=== PATIENT | female | born 1950 | race Two or more races ===

== ENCOUNTER 2018-01-30 06:56 | Inpatient (IN) | payer MEDICAID, MEDICARE, OTHER ==
[~2018-01-30] VITALS: Ht 152.4 cm; Wt 73.5 kg
[2018-01-30] MEDS ORDERED: SODIUM CHLORIDE 0.9% 1,000 ML IV ONE (07:51)
[2018-01-30 07:57] LABS: Hematocrit 44.2 % (36.0-46.0); Hemoglobin 14.6 g/dL (12.2-16.2); INR 0.93 (0.9-1.15); Mean Corpuscular Hemoglobin 29.3 pg (28.0-32.0); Mean Corpuscular Volume 88.7 fL (80.0-100.0); Partial Thromboplastin Time 23.9 sec (23.78-33.04); Platelet Count (auto) 321 10^3/uL (140-450); Red Blood Cells 4.98 10^6/uL (4.0-5.20)
[2018-01-30 08:00] LABS: Albumin 3.4 g/dL (3.4-5.0); BUN/Creatinine Ratio 14.7; Calcium 8.1 mg/dL (8.5-10.1); Magnesium 1.9 mg/dL (1.6-2.6); Potassium 3.9 mmol/L (3.5-5.1)
[2018-01-30] MEDS ORDERED: ONDANSETRON HCL 4 MG/2 ML VIAL IV ONE (08:00)
[2018-01-30 08:04] LABS: Bilirubin, Total 0.5 mg/dL (0.2-1.0); Total Protein 7.3 g/dL (6.4-8.2)
[2018-01-30 08:05] LABS: Basophils % (manual) 0 (0.0-2.0); Blast Cells 0; Eosinophils % (manual) 0 (0-7); Metamyelocytes % 0; Myelocytes % 0; Promyelocytes % 0; Reactive Lymphocytes 0
[2018-01-30] MEDS ORDERED: cefTRIAXone 1GM/10ml IVPUSH 10 ML IV ONE (08:30)
[2018-01-30] MEDS ORDERED: AZITHROMYCIN 500MG/ 250ML 250 ML IV ONE (08:30)
[2018-01-30 08:43] LABS: Band Neutrophils % (manual) 5; Lymphocytes % (manual) 18 (10.0-50.0); Monocytes % (manual) 1 (0-12)
[2018-01-30] MEDS ORDERED: KETOROLAC TROMETH 30 MG/ML 1ML VIAL IV ONE (08:45)
[2018-01-30] MEDS ORDERED: DEXTROSE (50%) 50ML SYRG IV PRN (11:00)
[2018-01-30] MEDS ORDERED: MORPHINE SULFATE 4 MG/ML SYR/VIAL IV PRN ×2 (11:00)
[2018-01-30] MEDS ORDERED: HYDROcodone-ACET 5/325MG TAB PO PRN (11:00)
[2018-01-30] MEDS ORDERED: ALBUTEROL SULF 2.5 MG/0.5ML(0.5%) NEB SOLN NEB PRN (11:00)
[2018-01-30] MEDS ORDERED: LORazepam 0.5 MG TAB PO PRN (11:00)
[2018-01-30] MEDS ORDERED: NITROGLYCERIN 0.4 MG SL TAB SL PRN (11:00)
[2018-01-30] MEDS ORDERED: LACTULOSE 20Gm/30ML SOLN PO PRN (11:00)
[2018-01-30] MEDS ORDERED: ONDANSETRON HCL 4 MG/2 ML VIAL IV PRN (11:00)
[2018-01-30] MEDS: SODIUM CHLORIDE 0.9% 1,000 ML IV SCH (11:13)
[2018-01-30] MEDS: ACCU-CHEK COMFORT CURVE STRIP VI SCH ×3 (11:17→22:11)
[2018-01-30] MEDS: ASPirin 81 mg TAB PO SCH (11:25)
[2018-01-30] MEDS: InsuLIN REG 1unit/0.01ml Soln (100units/ml) SC SCH ×3 (11:26→22:00)
[2018-01-30] MEDS: ENOXAPARIN SOD 60 MG/0.6 ML SYRINGE SC SCH ×2 (11:27→22:00)
[2018-01-30] MEDS ORDERED: ALBUTEROL SULF 2.5 MG/0.5ML(0.5%) NEB SOLN NEB SCH (12:00)
[2018-01-30 15:37] VITALS: BP 98/60
[2018-01-30 16:09] LABS: Amylase 34 U/L (25-115); Lipase 136 U/L (73-393)
[2018-01-30] MEDS ORDERED: TERBUTALINE SULFATE 5 MG TAB PO ONE (19:00)
[2018-01-30 21:13] VITALS: BP 111/59
[2018-01-30 22:00] VITALS: BP 111/59
[2018-01-30] MEDS: TERBUTALINE SULFATE 5 MG TAB PO SCH (22:09)
[2018-01-30] MEDS: METOPROLOL TARTRATE 25 MG TAB PO SCH (22:10)
[2018-01-30] MEDS: ATORVASTATIN 20 MG TAB PO SCH (22:19)
[2018-01-31] MEDS: SODIUM CHLORIDE 0.9% 1,000 ML IV SCH ×2 (01:00→16:52)
[2018-01-31 05:00] VITALS: BP 118/66
[2018-01-31] MEDS: InsuLIN REG 1unit/0.01ml Soln (100units/ml) SC SCH ×4 (06:55→22:00)
[2018-01-31] MEDS: ACCU-CHEK COMFORT CURVE STRIP VI SCH ×4 (06:55→22:00)
[2018-01-31 06:57] LABS: Cholesterol 192 mg/dL (< 200); HDL Cholesterol 46 mg/dL (40-59); LDL Cholesterol 130 mg/dL (< 100); Triglycerides 185 mg/dL (< 150)
[2018-01-31 08:16] VITALS: BP 115/67
[2018-01-31] MEDS: ACETAMINOPHEN 500 MG TAB PO PRN ×2 (09:05→21:39)
[2018-01-31] MEDS: cefTRIAXone 1GM/10ml IVPUSH 10 ML IV SCH (09:05)
[2018-01-31] MEDS: AZITHROMYCIN 500MG/ 250ML 250 ML IV SCH (10:43)
[2018-01-31] MEDS: PANTOPRAZOLE 40 MG TAB PO SCH (10:43)
[2018-01-31] MEDS: ASPirin 81 mg TAB PO SCH (10:43)
[2018-01-31] MEDS: METOPROLOL TARTRATE 25 MG TAB PO SCH ×2 (10:44→21:32)
[2018-01-31] MEDS: NITROGLYCERIN 0.2MG/HR TOPICAL PATCH TD SCH (11:13)
[2018-01-31] MEDS: TERBUTALINE SULFATE 5 MG TAB PO SCH ×2 (11:14→22:00)
[2018-01-31 12:21] VITALS: BP 118/56
[2018-01-31] MEDS ORDERED: LIDOCAINE 2%HCL (LOCAL ANESTH.) INJ 20ML MDV ONE (13:01)
[2018-01-31] MEDS ORDERED: IODIXANOL 320MG/ML 100ML BTL IV ONE ×2 (13:01→13:44)
[2018-01-31] MEDS ORDERED: SODIUM CHL 0.9% 0 ML ONE (13:43)
[2018-01-31] MEDS ORDERED: fentaNYL CITRATE 100 MCG/2 ML VL ONE (13:43)
[2018-01-31] MEDS ORDERED: ANGIOMAX 250 MG VIAL IV ONE (13:43)
[2018-01-31] MEDS ORDERED: MIDAZOLAM HCL 1MG/1ML-2 ML VIAL ONE (13:43)
[2018-01-31 16:47] VITALS: BP 121/74
[2018-01-31] MEDS: ATORVASTATIN 20 MG TAB PO SCH (21:30)
[2018-01-31 22:00] VITALS: BP 123/66
[2018-02-01] MEDS: SODIUM CHLORIDE 0.9% 1,000 ML IV SCH ×2 (02:13→16:09)
[2018-02-01 05:00] VITALS: BP 102/60
[2018-02-01] MEDS: ACCU-CHEK COMFORT CURVE STRIP VI SCH ×4 (05:37→22:00)
[2018-02-01] MEDS: InsuLIN REG 1unit/0.01ml Soln (100units/ml) SC SCH ×4 (05:38→22:00)
[2018-02-01 08:30] VITALS: BP 115/50
[2018-02-01] MEDS: METOPROLOL TARTRATE 25 MG TAB PO SCH ×2 (10:00→22:52)
[2018-02-01] MEDS: NITROGLYCERIN 0.2MG/HR TOPICAL PATCH TD SCH (10:00)
[2018-02-01] MEDS: cefTRIAXone 1GM/10ml IVPUSH 10 ML IV SCH (10:27)
[2018-02-01] MEDS: ASPirin 81 mg TAB PO SCH (10:28)
[2018-02-01] MEDS: PANTOPRAZOLE 40 MG TAB PO SCH (10:28)
[2018-02-01] MEDS: AZITHROMYCIN 500MG/ 250ML 250 ML IV SCH (10:28)
[2018-02-01] MEDS: TERBUTALINE SULFATE 5 MG TAB PO SCH ×2 (10:43→22:00)
[2018-02-01 12:30] VITALS: BP 131/66
[2018-02-01] MEDS: ACETAMINOPHEN 500 MG TAB PO PRN (13:51)
[2018-02-01 16:53] VITALS: BP 118/60
[2018-02-01 21:41] VITALS: BP 145/70
[2018-02-01] MEDS: ATORVASTATIN 20 MG TAB PO SCH (22:53)
[2018-02-02 04:38] VITALS: BP 142/56
[2018-02-02] MEDS: SODIUM CHLORIDE 0.9% 1,000 ML IV SCH ×2 (05:29→18:49)
[2018-02-02] MEDS: ACETAMINOPHEN 500 MG TAB PO PRN (06:06)
[2018-02-02] MEDS: InsuLIN REG 1unit/0.01ml Soln (100units/ml) SC SCH (06:07)
[2018-02-02] MEDS: ACCU-CHEK COMFORT CURVE STRIP VI SCH (06:07)
[2018-02-02 09:00] VITALS: BP 142/76
[2018-02-02] MEDS: cefTRIAXone 1GM/10ml IVPUSH 10 ML IV SCH (09:36)
[2018-02-02] MEDS: ASPirin 81 mg TAB PO SCH (09:36)
[2018-02-02] MEDS: METOPROLOL TARTRATE 25 MG TAB PO SCH ×2 (09:37→21:39)
[2018-02-02] MEDS: PANTOPRAZOLE 40 MG TAB PO SCH (09:52)
[2018-02-02] MEDS: TERBUTALINE SULFATE 5 MG TAB PO SCH ×2 (09:52→21:38)
[2018-02-02] MEDS: AZITHROMYCIN 500MG/ 250ML 250 ML IV SCH (09:52)
[2018-02-02] MEDS: NITROGLYCERIN 0.2MG/HR TOPICAL PATCH TD SCH (09:53)
[2018-02-02] MEDS ORDERED: LOPERAMIDE HCL 2 MG CAP PO PRN (10:30)
[2018-02-02 13:00] VITALS: BP_SYST 135; BP_SYST 154; BP_DIAS 75; BP_DIAS 80
[2018-02-02 17:00] VITALS: BP 140/72
[2018-02-02 21:30] VITALS: BP 151/77
[2018-02-02] MEDS: TEMAZEPAM 15 MG CAP PO PRN (21:39)
[2018-02-02] MEDS: ATORVASTATIN 20 MG TAB PO SCH (21:39)
[2018-02-03 04:44] VITALS: BP 137/69
[2018-02-03] MEDS: SODIUM CHLORIDE 0.9% 1,000 ML IV SCH ×2 (08:09→22:34)
[2018-02-03 09:00] VITALS: BP 156/73
[2018-02-03] MEDS: cefTRIAXone 1GM/10ml IVPUSH 10 ML IV SCH (11:17)
[2018-02-03] MEDS: AZITHROMYCIN 500MG/ 250ML 250 ML IV SCH (11:19)
[2018-02-03] MEDS: ASPirin 81 mg TAB PO SCH (11:19)
[2018-02-03] MEDS: PANTOPRAZOLE 40 MG TAB PO SCH (11:20)
[2018-02-03] MEDS: METOPROLOL TARTRATE 25 MG TAB PO SCH ×2 (11:20→22:35)
[2018-02-03] MEDS: NITROGLYCERIN 0.2MG/HR TOPICAL PATCH TD SCH (11:21)
[2018-02-03] MEDS: TERBUTALINE SULFATE 5 MG TAB PO SCH ×2 (11:21→22:34)
[2018-02-03 13:07] VITALS: BP 146/78
[2018-02-03 17:00] VITALS: BP 137/79
[2018-02-03 22:00] VITALS: BP 131/76
[2018-02-03] MEDS: ATORVASTATIN 20 MG TAB PO SCH (22:34)
[2018-02-03] MEDS: TEMAZEPAM 15 MG CAP PO PRN (22:35)
[2018-02-04 05:29] VITALS: BP 113/71
[2018-02-04 08:00] VITALS: BP 127/87
[2018-02-04] MEDS: AZITHROMYCIN 500MG/ 250ML 250 ML IV SCH (09:25)
[2018-02-04] MEDS: cefTRIAXone 1GM/10ml IVPUSH 10 ML IV SCH (09:25)
[2018-02-04] MEDS: PANTOPRAZOLE 40 MG TAB PO SCH (09:25)
[2018-02-04] MEDS: TERBUTALINE SULFATE 5 MG TAB PO SCH (09:26)
[2018-02-04] MEDS: ASPirin 81 mg TAB PO SCH (09:26)
[2018-02-04] MEDS: NITROGLYCERIN 0.2MG/HR TOPICAL PATCH TD SCH (09:26)
[2018-02-04] MEDS: METOPROLOL TARTRATE 25 MG TAB PO SCH (09:26)
[2018-02-04] MEDS: SODIUM CHLORIDE 0.9% 1,000 ML IV SCH (09:27)
[2018-02-04 12:34] VITALS: BP 149/83
[2018-02-04] MEDS: ACETAMINOPHEN 500 MG TAB PO PRN (15:07)
== END 2018-02-04 17:21 | disposition home or self-care (01) | DRG 280 ==
LOC: ER 06:59 → TELE 07:00 → TELE-WESTW 20:08
PROVIDERS: ADMIT Internal Medicine; ATTEND Family Medicine
PROC: 4A023N7 Measurement of Cardiac Sampling and Pressure, Left Heart, Percutaneous Approach (ICD-10-PCS; principal; 2018-01-31)
PROC: B2111ZZ Fluoroscopy of Multiple Coronary Arteries using Low Osmolar Contrast (ICD-10-PCS; 2018-01-31)
PROC: B2151ZZ Fluoroscopy of Left Heart using Low Osmolar Contrast (ICD-10-PCS; 2018-01-31)
DX: I21.4 Non-ST elevation (NSTEMI) myocardial infarction (principal); J18.9 Pneumonia, unspecified organism; N12 Tubulo-interstitial nephritis, not specified as acute or chronic; I10 Essential (primary) hypertension; K57.90 Diverticulosis of intestine, part unspecified, without perforation or abscess without bleeding; E11.9 Type 2 diabetes mellitus without complications; E78.00 Pure hypercholesterolemia, unspecified; I45.10 Unspecified right bundle-branch block; K42.9 Umbilical hernia without obstruction or gangrene; K44.9 Diaphragmatic hernia without obstruction or gangrene; E11.65 Type 2 diabetes mellitus with hyperglycemia; K57.30 Diverticulosis of large intestine without perforation or abscess without bleeding; R79.1 Abnormal coagulation profile; I70.0 Atherosclerosis of aorta; R59.0 Localized enlarged lymph nodes; Z87.442 Personal history of urinary calculi; Z79.84 Long term (current) use of oral hypoglycemic drugs
CPT/HCPCS: 36415; 71045; 71046; 74176; 76705; 78582; 80053; 80061; 82150; 82550; 82962; 83036; 83690; 83735; 83880; 84484; 85007; 85027; 85379; 85610; 85652; 85730; 86141; 86850; 86900; 86901; 87040; 87493; 93005; 93458; 93970; 94640; 96361; 96365; 96375; 99152; A6257; J0696; J1815; J1885; J2250; J2405; Q9967

== ENCOUNTER 2018-08-07 08:50 | Emergency (ER) | payer MEDICARE ==
[~2018-08-07] VITALS: Ht 154.9 cm; Wt 63.5 kg
[2018-08-07 09:10] VITALS: BP 156/78
[2018-08-07 09:24] LABS: Basophils # (auto) 0.1 uL; Basophils % (auto) 0.7 % (0.0-2.0); Eosinophils # (auto) 0.1 uL; Eosinophils % (auto) 0.7 % (0.0-7.0); Hematocrit 39.9 % (36.0-46.0); Hemoglobin 13.3 g/dL (12.2-16.2); Lymphocytes # (auto) 1.6 uL; Lymphocytes % (auto) 21.3 % (10.0-50.0); Mean Corpuscular Hemoglobin 29.4 pg (28.0-32.0); Mean Corpuscular Hgb Conc. 33.4 g/dL (32.0-36.0); Mean Corpuscular Volume 88.2 fL (80.0-100.0); Monocytes # (auto) 0.5 uL; Monocytes % (auto) 7.3 % (0.0-12.0); Neutrophils # (auto) 5.2 uL; Platelet Count (auto) 307 10^3/uL (140-450); Red Blood Cells 4.52 10^6/uL (4.0-5.20); Red Cell Distribution Width 13.2 % (11.8-14.3); White Blood Cell 7.4 10^3/uL (4.4-10.8)
[2018-08-07 09:44] LABS: Albumin 3.9 g/dL (3.4-5.0); Anion Gap 7 (5-15); Aspartate Aminotransferase 19 U/L (15-37); BUN/Creatinine Ratio 13.8; Blood Urea Nitrogen 11 mg/dL (7-18); Calcium 8.7 mg/dL (8.5-10.1); Carbon Dioxide 24 mmol/L (21-32); Chloride 109 mmol/L (98-107); GFR African American 92 mL/min; GFR Non-African American 76 mL/min; Glucose 128 mg/dL (74-106); Potassium 3.8 mmol/L (3.5-5.1); Sodium 140 mmol/L (136-145)
[2018-08-07 09:57] LABS: Alanine Aminotransferase 27 U/L (13-56); Alkaline Phosphatase 114 U/L (45-117); Bilirubin, Total 0.5 mg/dL (0.2-1.0); Total Protein 7.6 g/dL (6.4-8.2)
[2018-08-07 10:12] LABS: Urine Bacteria FEW /hpf (None Seen); Urine Blood Negative /uL (Negative); Urine Specific Gravity 1.009 (1.001-1.035); Urine WBC 4 /hpf (0 - 5)
== END 2018-08-07 11:55 | disposition home or self-care (01) ==
LOC: ER 08:50
DX: I10 Essential (primary) hypertension (principal)
CPT/HCPCS: 36415; 70450; 80053; 81001; 84484; 85025; 93005; 94761

== ENCOUNTER 2024-11-27 11:01 | Emergency (ER) | payer MEDICARE, OTHER ==
[~2024-11-27] VITALS: Ht 167.6 cm; Wt 63.6 kg
--- NOTE | 2024-11-27 11:40 | ED.PDOC ---
History of Present Illness HPI Comments Patient is a 74-year-old female with a medical history of type 2 diabetes, hyperlipidemia was brought to the ED via EMS with a chief complaint of dizziness. Patient reported she woke up early in the morning to get up to go to the restroom and felt dizzy and fell back on the bed. Patient reported sensation of feeling herself spinning/wobbly but denied nausea or vomiting, blurred vision, motor weakness, sensory abnormality. EMS reported patient had blood glucose of 593 mg/dL on arrival. Patient denied any shortness of breath, abdominal pain, chest pain. Chief Complaint: Dizziness Time Seen by MD: 11:11 Primary Care Provider: OSIEL Allergies: Coded Allergies: NO KNOWN ALLERGIES (Unverified , 01/22/14) Home Meds Unable to Obtain Active Prescriptions or Reported Meds Information Source: Patient, Emergency Med Personnel Mode of Arrival: EMS Past Medical History PAST MEDICAL HISTORY: DM Surgical History: APPLICATION SPEC History: No Pertinent APPLICATION SPEC History Family History Family History: Unknown Social History Smoker: Non-Smoker Alcohol: Denies ETOH Use Drugs: Denies Drug Use Lives In: Home Constitutional: reports: weakness EENTM: denies: blurred vision, double vision, ear bleeding, ear discharge, ear drainage, ear pain, ear ringing, eye pain, eye redness, hearing loss, mouth pain, mouth swelling, nasal discharge, nose bleeding, nose congestion, nose pain, photophobia, tearing, throat pain, throat swelling, voice changes, others Respiratory: denies: cough, hemoptysis, orthopnea, SOB at rest, shortness of breath, SOB with excertion, stridor, wheezing, others Cardiovascular: denies: chest pain, dizzy spells, diaphoresis, Dyspnea on exertion, edema, irregular heart beat, left arm pain, lightheadedness, palpitations, PND, syncope, others Gastrointestinal: denies: abdomen distended, abdominal pain, blood streaked bowels, constipated, diarrhea, dysphagia, difficulty swallowing, hematemesis, melena, nausea, poor appetite, poor fluid intake, rectal bleeding, rectal pain, vomiting, others Genitourinary: denies: abnormal vagina bleeding, burning, dyspareunia, dysuria, flank pain, frequency, hematuria, incontinence, pain, , vagina discharge, urgency, others Neurological: reports: dizziness Musculoskeletal: denies: back pain, gout, joint pain, joint swelling, muscle pain, muscle stiffness, neck pain, others Integumetry: denies: bruises, change in color, change in hair/nails, dryness, laceration, lesions, lumps, rash, wounds, others Allergic/Immunocompromised: denies: Difficulty Healing, Frequent Infections, Hives, Itching, others Hematologic/Lymphatic: denies: anemia, blood clots, easy bleeding, easy bruisi ng, swollen glands, others Endocrine: reports: excessive thirst, excessive urination Psychiatric: denies: anxiety, bipolar disorder, depression, hopeless, panic disorder, schizophrenia, sleepless, suicidal, others Physical Exam General Appearance: Normal HEENT: PERRL/EOMI, Pharynx Normal Neck: Full Range of Motion, Non-Tender, Normal Inspection Respiratory: Lungs Clear, No Accessory Muscle Use, No Respiratory Distress, Normal Breath Sounds Cardiovascular: No Edema, No JVD, No Murmur, Regular Rate/Rhythm Breast Exam: Deferred Gastrointestinal: No Organomegaly, Non Tender, No Pulsatile Mass, Normal Bowel Sounds, Soft Genitalia: Deferred Pelvic: Deferred Rectal: Deferred Extremities: No calf tenderness, Normal inspection, Normal range of motion, No pedal edema Neurologic: Alert, supervisor coremaker II-XII nml as Tested, No Motor Deficits, No Sensory Deficits Cerebellar Function: Normal Reflexes: Normal Skin: Dry, Normal Color, Warm Peripheral Pulses: 2+ dorsalis pedis (R), 2+ dorsalis pedis (L), 2+ Radial (R), 2+ Radial (L) Lymphatic: NOT DONE Was a procedure done? Was a procedure done?: No Differential Dx Considerations may include: Autonomic dysfunction, dehydration, electrolyte imbalance, TIA, stroke X-Ray, Labs, Meds, VS Vital Signs Date Time Temp Pulse Resp B/P (MAP) Pulse Ox O2 Delivery O2 Flow Rate FiO2 11/27/24 13:55 97.7 66 18 130/73 (92) 100 97.7 11/27/24 12:09 90 18 98 Room Air 11/27/24 12:09 98.0 90 18 143/83 (103) 98 98.0 11/27/24 11:18 97.8 87 20 164/92 (116) 98 97.8 11/27/24 11:04 77 Lab Test 11/27/24 14:44 11/27/24 13:11 11/27/24 11:39 11/27/24 11:36 Range/Units POC Glucose 342 H 445 *H 70-106 mg/dl White Blood Count 7.5 4.4-10.8 10^3/uL Red Blood Count 5.06 4.0-5.20 10^6/uL Hemoglobin 14.4 12.2-16.2 g/dL Hematocrit 42.6 36.0-46.0 % Mean Corpuscular Volume 84.3 80.0-100.0 fL Mean Corpuscular Hemoglobin 28.6 28.0-32.0 pg Mean Corpuscular Hemoglobin Concent 33.9 32.0-36.0 g/dL Red Cell Distribution Width 13.9 11.8-14.3 % Platelet Count 348 140-450 10^3/uL Mean Platelet Volume 8.4 6.9-10.8 fL Neutrophils (%) (Auto) 72.4 37.0-80.0 % Lymphocytes (%) (Auto) 17.1 10.0-50.0 % Monocytes (%) (Auto) 8.8 0.0-12.0 % Eosinophils (%) (Auto) 0.9 0.0-7.0 % Basophils (%) (Auto) 0.8 0.0-2.0 % Neutrophils # (Auto) 5.4 1.6-8.6 10 ^3/uL Lymphocytes # (Auto) 1.3 0.4-5.4 10 ^3/uL Monocytes # (Auto) 0.7 0-1.3 10 ^3/uL Eosinophils # (Auto) 0.1 0-0.8 10 ^3/uL Basophils # (Auto) 0.1 0-0.2 10 ^3/uL Nucleated Red Blood Cells 0.1 % Sodium Level 138 136-145 mmol/L Potassium Level 4.8 3.5-5.1 mmol/L Chloride Level 102 98-107 mmol/L Carbon Dioxide Level 25 20-31 mmol/L Anion Gap 11 5-15 Blood Urea Nitrogen 10 9-23 mg/dL Creatinine 0.96 0.550-1.02 mg/dL Glomerular Filtration Rate Calc 62 >90 mL/min BUN/Creatinine Ratio 10.4 10.0-20.0 Serum Glucose 436 *H 74-106 mg/dL Hemoglobin A1c > 14.0 H <5.7 % A1C Calcium Level 9.7 8.7-10.4 mg/dL Urine Color Colorless Yellow Urine Clarity Clear Clear Urine pH 5.5 5.0-9.0 Urine Specific [place] 1.037 H 1.001-1.035 Urine Protein Negative Negative Urine Ketones 1+ H Negative Urine Blood Negative Negative /uL Urine Nitrite Negative Negative Urine Bilirubin Negative Negative Urine Urobilinogen Normal Negative mg/dL Urine Leukocyte Esterase 1+ Negative /uL Urine RBC 4 0 - 4 /hpf Urine Microscopic WBC 25 H 0-5 /HPF Urine Squamous Epithelial Cells Few <5 /hpf Urine Bacteria Many H None Seen /hpf Urine Glucose 4+ H Normal mg/dL Urine Opiates Screen Neg NEGATIVE Urine Fentanyl Screen Neg NEGATIVE Urine Barbiturates Screen Neg NEGATIVE Urine Phencyclidine Screen Neg NEGATIVE Urine Amphetamines Screen Neg NEGATIVE Urine Benzodiazepines Screen Neg NEGATIVE Urine Cocaine Screen Neg NEGATIVE Urine Cannabinoids Screen Neg NEGATIVE Current Medications Medications (Trade) Dose Ordered Sig/Va Route Start Time Stop Time Status Last Admin Sodium Chloride 1,000 ml @ 500 mls/hr Q2H ONCE IV 11/27/24 12:00 11/27/24 13:59 DC 11/27/24 12:04 Insulin Human Regular (InsuLIN R) 3 units ONCE ONCE SC 11/27/24 13:00 11/27/24 13:01 DC 11/27/24 13:07 Ceftriaxone Sodium 50 ml @ 100 mls/hr ONCE ONCE IV 11/27/24 13:15 11/27/24 13:44 DC 11/27/24 13:07 Insulin Human Regular (InsuLIN R) 7 units ONCE ONCE SC 11/27/24 14:15 11/27/24 14:17 DC 11/27/24 15:07 Patient is a 74 year with a history of type 2 diabetes mellitus was brought to the ED with a chief complaint of dizziness that started earlier this morning. 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 Initial labs showed hyperglycemia and HGB A1c level more than 14%. 10 units of regular insulin was given. On physical examination patient did not have any motor weakness, sensory abnormality, cerebellar signs, visual abnormalities. Urinalysis showed elevated leukocyte esterase with a WBCs following which patient was given 1 g IV ceftriaxone and 1 L of IV fluid was given. Orthostatic vitals were negative for orthostatic hypotension. Patient was explained about the insulin compliance as she has been prescribed insulin Lantus 20 units daily but has not been taking it. Patient will be sent home on 5 days of 100 mg b.i.d. Macrobid and recommended to continue taking her insulin and follow up with the PCP in 1 week. Time of 1ST Reevaluation: 15:26 Reevaluation 1ST: Improved Patient Education/Counseling: Diagnosis, Treatment Family Education/Counseling: No Family Present SEPSIS Sepsis Screen Physician Orders Head Without Contrast (11/27/24 11:12) Electrocardigram (11/27/24 11:31) Accucheck (11/27/24 16:20) Vital Signs Date Time Temp Pulse Resp B/P (MAP) Pulse Ox O2 Delivery O2 Flow Rate FiO2 11/27/24 13:55 97.7 66 18 130/73 (92) 100 97.7 11/27/24 12:09 90 18 98 Room Air 11/27/24 12:09 98.0 90 18 143/83 (103) 98 98.0 11/27/24 11:18 97.8 87 20 164/92 (116) 98 97.8 11/27/24 11:04 77 Laboratory Tests Test 11/27/24 13:11 White Blood Count 7.5 10^3/uL (4.4-10.8) Medications Medications Dose Ordered Sig/Va Route Start Time Stop Time Status Last Admin Dose Admin Ceftriaxone Sodium 50 ml @ 100 mls/hr ONCE ONCE IV 11/27/24 13:15 11/27/24 13:44 DC 11/27/24 13:07 Insulin Human Regular 3 units ONCE ONCE SC 11/27/24 13:00 11/27/24 13:01 DC 11/27/24 13:07 Insulin Human Regular 7 units ONCE ONCE SC 11/27/24 14:15 11/27/24 14:17 DC 11/27/24 15:07 Sodium Chloride 1,000 ml @ 500 mls/hr Q2H ONCE IV 11/27/24 12:00 11/27/24 13:59 DC 11/27/24 12:04 Departure 1 Departure Time of Disposition: 16:40 Impression: Primary Impression: Autonomic dysfunction with type 2 diabetes mellitus Additional Impression: Uncontrolled type 2 diabetes mellitus with hyperglycemia Disposition: 01 HOME / SELF CARE / HOMELESS Condition: Stable e-Prescriptions Unable to Obtain Active Prescriptions or Reported Meds Critical Care Note Critical Care Time?: No Stability Stability form required: No Heart Score Heart Score: Heart Score Response (Comments) Value History N/A 0 EKG N/A 0 Age N/A 0 Risk Factors N/A 0 Troponin N/A 0 Total 0 RAVEN RODRIGUES RESIDENT Nov 27, 2024 11:39
--- NOTE | 2024-11-27 11:53 | DVH ---
CT HEAD WITHOUT CONTRAST INDICATION: dizziness EXAM DATE: 11/27/2024 11:22 AM COMPARISON: None RADIATION DOSE: CTDIvol: 55.38 mGy, DLP: 966.78 mGy*cm PROCEDURE: CT scans of the head were obtained from the vertex to the skull base. Sagittal and coronal reconstructions were provided. All CT scans at this medical facility are performed using dose modulation techniques as appropriate t o a performed exam including the following: Automated exposure control was utilized; adjustment of th e MA and/or KV according to patient size; and use of iterative reconstruction technique. FINDINGS: Right parietal lobe encephalomalacia from old infarct. There is sulcal and ventricular pro minence. The brain otherwise shows normal morphology and beltran-white matter differentiation, without i ntracranial hemorrhage, extra-axial fluid collection, mass effect or acute large vessel infarct. The ventricles are normal in size. The basal cisterns are patent. The skull and visible facial bones are intact. The paranasal sinuses, mastoid air cells and middle ear cavities are well-aerated. The soft t issues of the scalp are unremarkable. 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 No acute intracranial abnormality.
[2024-11-27] MEDS: SODIUM CHLORIDE 0.9% 1,000 ML IV ONE (12:04)
[2024-11-27 12:09] LABS: Urine Protein, UAD Negative (Negative)
[2024-11-27 12:17] LABS: Amphetamine Screen, Urine Neg (NEGATIVE); Barbiturate Scree,Urine Neg (NEGATIVE); Benzodiazephine Screen, Urine Neg (NEGATIVE); Cocaine Screen, Urine Neg (NEGATIVE); Opiate Scree,Urine Neg (NEGATIVE)
[2024-11-27 12:18] LABS: Cannabinoid Screen, Urine Neg (NEGATIVE); Phencyclidine Screen, Urine Neg (NEGATIVE)
[2024-11-27] MEDS: InsuLIN REG 1unit/0.01ml Soln (100units/ml) IV ONE (12:59)
[2024-11-27] MEDS: cefTRIAXone 1GM/50ML D5W 50 ML IV ONE (13:07)
[2024-11-27] MEDS: InsuLIN REG 1unit/0.01ml Soln (100units/ml) SC ONE ×2 (13:07→15:07)
[2024-11-27 13:33] LABS: Hematocrit 42.6 % (36.0-46.0); Hemoglobin 14.4 g/dL (12.2-16.2); Mean Corpuscular Hemoglobin 28.6 pg (28.0-32.0); Mean Corpuscular Volume 84.3 fL (80.0-100.0); Nucleated Red Blood Cells % 0.1 %
[2024-11-27 13:43] LABS: Chloride 102 mmol/L (98-107); Potassium 4.8 mmol/L (3.5-5.1); Sodium 138 mmol/L (136-145)
[2024-11-27 13:44] LABS: Anion Gap 11 (5-15); Carbon Dioxide 25 mmol/L (20-31)
[2024-11-27 13:45] LABS: Calcium 9.7 mg/dL (8.7-10.4)
[2024-11-27 13:49] LABS: BUN/Creatinine Ratio 10.4 (10.0-20.0); Blood Urea Nitrogen 10 mg/dL (9-23)
[2024-11-27 13:51] LABS: Glucose 436 mg/dL (74-106)
[2024-11-27] MEDS ORDERED: NITR-87 PO (16:31)
[2024-11-27 16:55] VITALS: BP 155/88; PULSE 89; RESP 16; TEMP 98.4; O2SAT 94
--- NOTE | 2024-11-28 01:50 | ECG ---
[facility] Test Date: 2024-11-27 Test Time: 11:04:06 Pat Name: BASIM PEREZ Department: ED Room: Gender: F Observatory Director: VIANCA : 1950 Requested By: RAVEN RODRIGUES Order Number: [id number] Reading MD: Rickie Hernandez Measurements Intervals [place] Rate: 77 P: 40 CA: 130 QRS: -63 QRSD: 136 T: 4 QT: 433 QTc: 491 Interpretive Statements Sinus rhythm RBBB and LAFB Probable left ventricular hypertrophy Baseline wander in lead(s) II,aVR Electronically Signed On 12-02-2024 17:44:20 PDT by Rickie Hernandez Please click the below link to view image of tracing.
== END 2024-11-27 17:01 | disposition home or self-care (01) ==
LOC: EDBD 11:01 → ER 11:06
DX: E11.43 Type 2 diabetes mellitus with diabetic autonomic (poly)neuropathy (principal); E11.65 Type 2 diabetes mellitus with hyperglycemia; E78.5 Hyperlipidemia, unspecified; W06.XXXA Fall from bed, initial encounter; Y93.89 Activity, other specified; Y92.89 Other specified places as the place of occurrence of the external cause; Y99.8 Other external cause status; Z79.899 Other long term (current) drug therapy
CPT/HCPCS: 36415; 70450; 80048; 80307; 81001; 82947; 83036; 85025; 93005; 96365; 99284; J0696; J1815; J7030; 82962; 96372